=== PATIENT | female | born 1975 | race Hispanic/Latino ===

== ENCOUNTER 2017-02-19 15:46 | Emergency (ER) | payer SELFPAY ==
[2017-02-19] MEDS ORDERED: ALPRAZolam 0.5 MG TABLET PO ONE (16:22)
--- NOTE | 2017-02-19 16:34 | CT REPORT ---
HISTORY: Headache, hypertension. TECHNIQUE: Axial images from the foramen magnum through the vertex without contrast. Dose reduction technique wa s utilized. COMPARISON: None. FINDINGS: No acute hemorrhage, mass, midline shift or extra-axial fluid collection is identified. The ventricles and sulci are normal for age. The turcios-white differentiation is normal. No acute infarct is identified. The visualized paranasal sinuses and mastoid air cells are well-aerated. The skull is unremarkable. IMPRESSION: Negative head CT. Final Electronic Signature: This report was electronically signed by Osmar Ruiz MD on 02/19/2017 4 :31 PM. akira /
--- NOTE | 2017-02-19 17:16 | ER PHYSICIAN DOCUMENTATION ---
Physician Documentation [facility] Name:Mel Torres Age:41 yrs Sex:Female :1975 Arrival Date:02/19/2017 Time:15:46 Bed5 Private MD: Foster Gil Disposition: 02/19/17 17:07 Discharged to Home/Self Care. Impression: Anxiety Reaction. - Condition is Good. - Discharge Instructions: ANXIETY REACTION (Child). - Prescriptions for Xanax 0.25 mg Oral Tablet - take 1 tablet by ORAL route every 8 hours As needed; 20 tablet. - Medical Reconciliation form form. - Follow up: [facility]; When: 1 week; Reason: Recheck today's complaints, Continuance of care. - Problem is new. - Symptoms have improved. HPI: 02/19 16:00 This 41 yrs old Female presents to ER via Private Vehicle with complaints of be Blood Pressure Problem. 16:00 The patient presents to the emergency department with anxiety, possibly related to be recent encounter at [facility] with minor CBC discrepancies, headache and dizziness. Onset: The symptom(s)/episode began/occurred just prior to arrival. Past psychiatric history: none. Associated signs and symptoms: Pertinent positives; anxiety, headache, Pertinent negatives: chest pain, chills, substance abuse, suicide ideation. Severity of symptoms: At their worst the symptoms were moderate just prior to arrival. Historical: - Allergies: No known drug Allergies; - Home Meds: 1. Lorazepam Oral - PMHx: Headaches; - PSHx: None; - Tetanus: < 10 years. - Ebola Screening: : Patient negative for fever greater than or equal to 101.5 degrees Fahrenheit, and additional compatible Ebola Virus Disease symptoms. - Immunization history: Flu Vaccine < 1 year. - Social history: Smoking status: Patient states was never smoker of tobacco. ROS: 16:00 Constitutional: Positive for be 16:00 Neuro: Positive for dizziness, headache, Negative for altered mental status, gait disturbance, hearing loss, seizure activity, speech changes, near syncope, tinnitus. 16:00 Psych: Positive for anxiety, Negative for depression, drug dependence, alcohol dependence, auditory hallucinations, homicidal ideation, suicidal ideation. 16:00 All other systems are negative. Exam: 16:00 Constitutional: This is a well developed, well nourished patient who is awake, alert, be and in no acute distress. Head/Face: Normocephalic, atraumatic. Eyes: Pupils equal round and reactive to light, extra-ocular motions intact. Lids and lashes normal. Conjunctiva and sclera are non-icteric and not injected. Cornea within normal limits. Periorbital areas with no swelling, redness, or edema. Cardiovascular: Regular rate and rhythm with a normal S1 and S2. No gallops, murmurs, or rubs. Normal PMI, no JVD. No pulse deficits. Respiratory: Lungs have equal breath sounds bilaterally, clear to auscultation and percussion. No rales, rhonchi or wheezes noted. No increased work of breathing, no retractions or nasal flaring. 16:00 Neuro: Awake and alert, GCS 15, oriented to person, place, time, and situation. be Cranial nerves II-XII grossly intact. Motor strength 5/5 in all extremities. Sensory grossly intact. Cerebellar exam normal. Normal gait. 16:00 Psych: Behavior/mood is pleasant, cooperative, anxious, Affect is calm, Oriented to person, place, time, Patient has no thoughts/intents to harm self or others. Vital Signs: 16:13 BP 142 / 85; Pulse 94; Resp 21; Temp 98.0(O); Pulse Ox 100% on R/A; Weight 56.25 kg; rh Height 5 ft. 5 in. (165.10 cm); Pain 8/10; 17:15 BP 100 / 65; Pulse 72; Resp 16; Pulse Ox 95% on R/A; Pain 0/10; rh 16:13 Body Mass Index 20.63 (56.25 kg, 165.10 cm) rh MDM: 16:00 Differential diagnosis: depression, panic attack. Data reviewed: vital signs, nurses be notes, radiologic studies, CT scan, and as a result, I will discharge patient, prescribe sedation medication, Xanax. 16:03 Patient medically screened. be 02/19 16:34 Order name: CAT SCAN; HEAD W/O CON [id number]; Complete Time: 07:49 EDMS 07 07:49 Interpretation: Normal. be Dispensed Medications: 16:10 Drug: Xanax Tablet 0.25 mg; Route: PO; rh 17:16 Follow up: Response: Marked relief of symptoms rh Signatures: Foster Roy MD MD be Hofsess, Rachel rh
--- NOTE | 2017-02-19 17:16 | ER NURSING DOCUMENTATION ---
Nurse's Notes [facility] Name:Mel Torres Age:41 yrs Sex:Female :1975 Arrival Date:02/19/2017 Time:15:46 Bed5 Private MD: Diagnosis:Anxiety Reaction Presentation: 02/19 15:56 Acuity: MARIAN 3 rh 16:11 Presenting complaint: Patient states: Pt c/o headache in the back of her head, rh dizziness and a high blood pressure. Pt states that she took her pulse - which was high - therefore her blood pressure must be high as well. Pt denies visual changes. Transition of care: Home. 16:11 Method Of Arrival: Private Vehicle rh Triage Assessment: 16:12 General: Appears in no apparent distress, Behavior is cooperative. Pain: Complains of rh pain in occipital area. EENT: Oral mucosa is moist. Neuro: Level of Consciousness is awake, alert, obeys commands, Oriented to person, place, time, event, [employer] are equal bilaterally Moves all extremities. Gait is steady, Speech is normal, Facial symmetry appears normal. Neuro: Reports dizziness. Cardiovascular: Capillary refill Chest pain is denied. Respiratory: Airway is patent. GI: Denies nausea. Derm: Skin is intact, is healthy with good turgor, Skin is pink, warm & dry. Historical: - Allergies: No known drug Allergies; - Home Meds: 1. Lorazepam Oral - PMHx: Headaches; - PSHx: None; - Tetanus: < 10 years. - Ebola Screening: : Patient negative for fever greater than or equal to 101.5 degrees Fahrenheit, and additional compatible Ebola Virus Disease symptoms. - Immunization history: Flu Vaccine < 1 year. - Social history: Smoking status: Patient states was never smoker of tobacco. Screenin:15 Infectious Disease Risk None. Abuse screen: Denies threats or abuse. Denies injuries rh from another. Nutritional screening: No deficits noted. Assessment: 16:15 See Triage Assessment done by same RN. rh Vital Signs: 16:13 BP 142 / 85; Pulse 94; Resp 21; Temp 98.0(O); Pulse Ox 100% on R/A; Weight 56.25 kg; rh Height 5 ft. 5 in. (165.10 cm); Pain 8/10; 17:15 BP 100 / 65; Pulse 72; Resp 16; Pulse Ox 95% on R/A; Pain 0/10; rh 16:13 Body Mass Index 20.63 (56.25 kg, 165.10 cm) ED Course: 15:51 Patient arrived in ED. 15:56 Triage completed. 16:00 Notified ED Physician of patient's arrival and chief complaint. Dr. Roy. 16:03 Foster Roy MD is Attending Physician. be 16:05 Lakshmi Tariq is Primary Nurse. rh 16:15 Valuables Remains with patient Patient has correct armband on for positive rh identification. Bed in low position. Call light in reach. Side rails up X 1. Family accompanied patient. 17:07 [facility] is Referral Physician. be Administered Medications: 16:10 Drug: Xanax Tablet 0.25 mg; Route: PO; rh 17:16 Follow up: Response: Marked relief of symptoms rh Outcome: 17:07 Discharge ordered by MD. be 17:15 Discharged to home ambulatory, with friend. rh 17:15 Condition: improved 17:15 Discharge Assessment: Patient awake, alert and oriented x 3. No cognitive and/or functional deficits noted. Patient verbalized understanding of disposition instructions. 17:15 Discharge instructions given to patient, friend, Instructed on discharge instructions, follow up and referral plans. medication usage, Demonstrated understanding of instructions, medications, Prescriptions given X 1. 17:16 Patient left the ED. 07 11:26 Discharge F/U Call: Unable to reach: no answer Signatures: Foster Roy MD MD be Lakshmi Tariq [place]
== END 2017-02-19 17:16 | disposition home or self-care (01) ==
LOC: ER 15:46 → MERGE 15:46 → ER 17:16
DX: F41.9 Anxiety disorder, unspecified (principal); R51 Headache; R42 Dizziness and giddiness; Z79.899 Other long term (current) drug therapy
CPT/HCPCS: 70450; 99283